=== PATIENT | female | born 1940 | race Caucasian/White ===

== ENCOUNTER 2019-02-02 05:59 | Day surgery (SDC) | payer MEDICARE ==
[~2019-02-02 05:59] MED LIST: Buffered Lidocaine 1% SYRIN* 1 ML/SYRINGE INTRADERM ONE
[2019-02-02] MEDS ORDERED: Lactated Ringers 1000 ML Bag* 1,000 ML IV SCH (06:00)
[2019-02-02] MEDS ORDERED: Buffered Lidocaine 1% SYRIN* 1 ML/SYRINGE INTRADERM ONE (07:16)
[2019-02-02] MEDS ORDERED: ceFAZolin 2 GM PREMIX in ORs 2 GM/50 ML BAG ONE (07:16)
[2019-02-02] MEDS ORDERED: Losartan TAB* 25 MG PO STA (07:55)
[2019-02-02] MEDS ORDERED: Lidocaine 1% w EPI 1:100,000* MDV 20 ML VIAL ONE (09:02)
[2019-02-02] MEDS ORDERED: Methylene Blue 0.5 %* 50 MG/10 ML AMP IV ONE (09:02)
[2019-02-02] MEDS ORDERED: Mineral Oil Sterile, TOPICAL* 25 ML BTL ONE (09:03)
[2019-02-02] MEDS ORDERED: Bupivacaine 0.25% SDV* 30 ML ONE (09:03)
[2019-02-02] MEDS ORDERED: Midazolam* 1 MG/ML 2 ML VIAL (2 MG) ONE (09:17)
[2019-02-02] MEDS ORDERED: fentaNYL* 50 MCG/ML 2 ML VIAL (100 MCG VIAL) ONE (09:18)
[2019-02-02] MEDS ORDERED: Lidocaine 2% PF * 5 ML VIAL ONE (09:29)
[2019-02-02] MEDS ORDERED: Propofol* 10 MG/ML 20 ML BTL ONE (09:29)
[2019-02-02] MEDS ORDERED: Naloxone* 0.4 MG/ML 1 ML VIAL IV PRN (09:53)
[2019-02-02 11:46] VITALS: BP 152/76
== END 2019-02-02 11:50 | disposition home or self-care (01) ==
LOC: OR 05:59
PROVIDERS: ATTEND Plastic Surgery
DX: C44.01 Basal cell carcinoma of skin of lip (principal); I10 Essential (primary) hypertension; F41.9 Anxiety disorder, unspecified
CPT/HCPCS: 88305; 88331; 88332; A9270-GY; J0690; J2250; J2704; J3010; J3490